=== PATIENT | female | born 1950 | race Caucasian/White ===

== ENCOUNTER 2024-09-12 14:43 | Emergency (ER) | payer OTHER ==
[2024-09-12] MEDS ORDERED: ACETAMINOPHEN 500 MG TAB ONE (15:05)
--- NOTE | 2024-09-12 15:25 | RAD REPORT ---
EXAM: CT brain without contrast HISTORY: Pain;Trauma COMPARISON: None TECHNIQUE: Multiple contiguous axial images were obtained and a CT of the brain without contrast. Sag ittal and coronal reformats were performed. One or more of the following dose reduction techniques were used: Automated exposure control, adjust ment of the mA and/or kV according to patient size, and/or iterative reconstruction. FINDINGS: No evidence of hydrocephalus, intracranial hemorrhage, or extra-axial fluid collection. Mild brain atrophy with mild periventricular and deep white matter chronic microvascular ischemic ch anges present. No evidence of midline shift or areas of brain edema. The calvarium is intact. The visualized paranasal sinuses and mastoid air cells are essentially clear . IMPRESSION: No evidence of acute intracranial abnormality. EXAM: CT of the cervical spine without contrast HISTORY: Neck pain, injury Pain;Trauma TECHNIQUE: Multiple contiguous axial images were obtained in a CT of the cervical spine without contr ast. Sagittal and coronal reformats were performed. FINDINGS: The vertebral bodies demonstrate normal height and alignment. No evidence of acute fracture or subluxation.. Moderate multilevel lower cervical degenerative changes seen with kyphosis. No prevertebral soft tissue swelling is seen. The posterior facets are well aligned. Normal alignment of the skull base with the cervical spine is seen. The lung apices are unremarkable. IMPRESSION: No evidence of acute osseous abnormality of the cervical spine.
--- NOTE | 2024-09-12 16:08 | EDPHYS ---
Physician Documentation [facility] Name: Shelley Lobato Age: 73 yrs Sex: Female : 1950 Arrival Date: 09/12/2024 Time: 14:43 Bed 11 Private MD: ED Physician Scott Vargas HPI: 09/12 16:02 This 73 yrs old Female presents to ER via EMS with complaints of Fall Injury. [facility] 16:02 Details of fall: The patient fell from an upright position, while standing, while jose walking. Onset: The symptoms/episode began/occurred just prior to arrival. Associated injuries: The patient sustained injury to the head, contusion. Severity of symptoms: At their worst the symptoms were mild, in the emergency department the symptoms are unchanged. The patient has not experienced similar symptoms in the past. Historical: - Allergies: 15:00 PENICILLINS; ll1 - PMHx: 15:00 Hypertensive disorder; ll1 - PSHx: 15:00 hernia repair x 2; L knee replacement; ll1 - Immunization history:: Adult Immunizations up to date. - Infectious Disease History:: Denies. - Social history:: Smoking status: Patient denies any tobacco usage or history of. ROS: 16:03 Constitutional: Negative for fever, chills, and weight loss, Eyes: Negative for injury, jose pain, redness, and discharge, ENT: Negative for injury, pain, and discharge, Neck: Negative for injury, pain, and swelling, Cardiovascular: Negative for chest pain, palpitations, and edema, Respiratory: Negative for shortness of breath, cough, wheezing, and pleuritic chest pain, Abdomen/GI: Negative for abdominal pain, nausea, vomiting, diarrhea, and constipation, Back: Negative for injury and pain, : Negative for injury, bleeding, discharge, and swelling, MS/Extremity: Negative for injury and deformity, Skin: Negative for injury, rash, and discoloration, Psych: Negative for depression, anxiety, suicide ideation, homicidal ideation, and hallucinations, Allergy/Immunology: Negative for hives, rash, and allergies, Endocrine: Negative for neck swelling, polydipsia, polyuria, polyphagia, and marked weight changes, Hematologic/Lymphatic: Negative for swollen nodes, abnormal bleeding, and unusual bruising, 16:03 Neuro: Positive for fall, hit back of head, was confused afterwards, Exam: 16:03 Constitutional: This is a well developed, well nourished patient who is awake, alert, jose and in no acute distress. Eyes: Pupils equal round and reactive to light, extra-ocular motions intact. Lids and lashes normal. Conjunctiva and sclera are non-icteric and not injected. Cornea within normal limits. Periorbital areas with no swelling, redness, or edema. ENT: Nares patent. No nasal discharge, no septal abnormalities noted. Tympanic membranes are normal and external auditory canals are clear. Oropharynx with no redness, swelling, or masses, exudates, or evidence of obstruction, uvula midline. Mucous membranes moist. Neck: Trachea midline, no thyromegaly or masses palpated, and no cervical lymphadenopathy. Supple, full range of motion without nuchal rigidity, or vertebral point tenderness. No Meningismus. Chest/axilla: Normal chest wall appearance and motion. Nontender with no deformity. No lesions are appreciated. Cardiovascular: Regular rate and rhythm with a normal S1 and S2. No gallops, murmurs, or rubs. Normal PMI, no JVD. No pulse deficits. Respiratory: Lungs have equal breath sounds bilaterally, clear to auscultation and percussion. No rales, rhonchi or wheezes noted. No increased work of breathing, no retractions or nasal flaring. Abdomen/GI: Soft, non-tender, with normal bowel sounds. No distension or tympany. No guarding or rebound. No evidence of tenderness throughout. Back: No spinal tenderness. No costovertebral tenderness. Full range of motion. Skin: Warm, dry with normal turgor. Normal color with no rashes, no lesions, and no evidence of cellulitis. MS/ Extremity: Pulses equal, no cyanosis. Neurovascular intact. Full, normal range of motion. Neuro: Awake and alert, GCS 15, oriented to person, place, time, and situation. Cranial nerves II-XII grossly intact. Motor strength 5/5 in all extremities. Sensory grossly intact. Cerebellar exam normal. Normal gait. Psych: Awake, alert, with orientation to person, place and time. Behavior, mood, and affect are within normal limits. 16:03 Head/face: Noted is contusion, that is superficial, of the left occipital area and right occipital area, 16:03 Musculoskeletal/extremity: DVT Exam: No signs of deep vein thrombosis. no pain, no swelling, no tenderness, negative Homans' sign noted on exam, no appreciated bluish discoloration, no erythema, no increased warmth, Vital Signs: 14:59 BP 169 / 90; Pulse 77; Resp 16; Temp 97.3; Pulse Ox 99% on R/A; Weight 77.11 kg; Height ll1 5 ft. 4 in. ; Pain 5/10; 16:39 BP 178 / 85; Pulse 79; Resp 18 S; Pulse Ox 100% on R/A; kc6 14:59 Body Mass Index 29.18 (77.11 kg, 162.56 cm) ll1 14:59 Pain Scale: Adult ll1 Toney Coma Score: 16:04 Eye Response: spontaneous(4). Motor Response: obeys commands(6). Verbal Response: jose oriented(5). Total: 15. MDM: 14:55 Medical Screening Exam initiated jose 16:04 Differential diagnosis: Contusion of Hematoma on Intracranial bleed- Concussion without jose LOC. cerebral contusion. Differential diagnosis: abrasion, closed head injury, contusion, fracture, laceration, multiple trauma, sprain, strain. Data reviewed: vital signs, nurses notes, radiologic studies, CT scan. Consideration of Admission/Observation Escalation of care including admission/observation considered. I considered the following discharge prescriptions or medication management in the emergency department Medications were administered in the Emergency Department. See MAR. Independent interpretation of the following test(s) in the Emergency Department CT Scan: My interpretation is ct head and c spine. Test considered but Not performed: Labs: no labs, no ekg, no cp , no n/v, pt tripped , wearing flip flops. 09/12 14:59 Order name: CT Head C Spine; Complete Time: 15:46 jose 09/12 14:59 Order name: Ice pack; Complete Time: 15:07 jose Administered Medications: 15:10 Drug: Acetaminophen PO 1000 mg PO once Route: PO; kc6 15:51 Follow up: Response: No adverse reaction kc6 16:39 Drug: Norvasc PO 5 mg PO once Route: PO; kc6 Disposition Summary: 09/12/24 16:07 Discharge Ordered Notes: Location: Home jose Problem: new jose Symptoms: have improved jose Condition: Stable jose Diagnosis - Fall on same level, unspecified jose - Concussion without loss of consciousness jose - Postconcussional syndrome jose - Essential (primary) hypertension jose Followup: jose - With: Private Physician - When: 2 - 3 days - Reason: Recheck today's complaints, Continuance of care, Re-evaluation by your physician Followup: jose - With: Liam Gómez MD - When: 2 - 3 days - Reason: Recheck today's complaints, Re-evaluation by your physician Discharge Instructions: - Discharge Summary Sheet jose - Contusion jose - Head Injury, Adult jose - Hypertension, Adult jose - Post-Concussion Syndrome jose - Post-Concussion Syndrome, [id number]-ge-[id number] jose - Contusion, Lzwd-fu-Ywnp jose - Hypertension, Adult, [id number]-ng-[id number] jose - How to Take Your Blood Pressure, Ooif-ue-Iydt jose - Head Injury, Adult, Bdjo-ab-Kiqb jose - Managing Your Hypertension jose Forms: - Medication Reconciliation Form jose - Antibiotic Education jose - Prescription Opioid Use jose - Patient Portal Instructions jose - Leadership Thank You Letter jose Prescriptions: - Norvasc 5 mg Oral Tablet - take 1 tablet ORAL route once daily; 20 tablet; Refills: 0, Product Selection jose Permitted Signatures: Dispatcher [employer] Scott Gonzalez MD MD cha Lewis, Lynsay, RN RN ll1 Shadia Warren RN RN kc6
--- NOTE | 2024-09-12 16:08 | ER ---
Nurse's Notes [facility] Name: Shelley Lobato Age: 73 yrs Sex: Female : 1950 Arrival Date: 09/12/2024 Time: 14:43 Bed 11 Private MD: Diagnosis: Fall on same level, unspecified;Concussion without loss of consciousness;Postconcussional syndrome;Essential (primary) hypertension Presentation: 09/12 14:53 Chief complaint: Patient states: Fell and hit head in parking lot just [employer]. States she ll1 doesn't remember falling. States the back of her head is tender. Coronavirus screen: Client denies travel out of the [place] in the last 14 days. At this time, the client does not indicate any symptoms associated with coronavirus-19. Ebola Screen: Patient denies travel to an Ebola-affected area in the 21 days before illness onset. Initial Sepsis Screen: Does the patient meet any 2 criteria? No. Patient's initial sepsis screen is negative. Does the patient have a suspected source of infection? No. Patient's initial sepsis screen is negative. Risk Assessment: Do you want to hurt yourself or someone else? Patient reports no desire to harm self or others. Onset of symptoms was September 12, 2024. 14:53 Method Of Arrival: EMS: [facility] 14:53 Acuity: CARA 3 ll1 14:58 Care prior to arrival: None. Mechanism of Injury: Fall. Trauma event details: Injury ll1 occurred in the [facility]. Triage Assessment: 14:55 General: Appears uncomfortable, Behavior is calm, cooperative, appropriate for age. ll1 Pain: Complains of pain in scalp Quality of pain is described as aching. Neuro: Reports headache a syncopal episode. Historical: - Allergies: 15:00 PENICILLINS; ll1 - PMHx: 15:00 Hypertensive disorder; ll1 - PSHx: 15:00 hernia repair x 2; L knee replacement; ll1 - Immunization history:: Adult Immunizations up to date. - Infectious Disease History:: Denies. - Social history:: Smoking status: Patient denies any tobacco usage or history of. Screenin:06 [facility] ED Fall Risk Assessment (Adult) History of falling in the last 3 months, kc6 including since admission Yes- physiologic fall (2 pts) Confusion or Disorientation No (0 pts) Intoxicated or Sedated No (0 pts) Impaired Gait No (0 pts) Mobility Assist Device Used No (0 pt) Altered Elimination No (0 pt) Score/Fall Risk Level 0 - 2 = Low Risk Oriented to surroundings, Maintained a safe environment. Abuse screen: Denies threats or abuse. Denies injuries from another. Nutritional screening: No deficits noted. Tuberculosis screening: No symptoms or risk factors identified. Assessment: 15:05 General: Appears in no apparent distress. comfortable, well groomed, well developed, kc6 Behavior is calm, cooperative, appropriate for age. Pain: Complains of pain in scalp. Neuro: Level of Consciousness is awake, alert, obeys commands, Oriented to person, place, time, situation, Appropriate for age Reports dizziness, a syncopal episode. Cardiovascular: Capillary refill < 3 seconds. Respiratory: Airway is patent Trachea midline Respiratory effort is even, unlabored, Respiratory pattern is regular, symmetrical. GI: No signs and/or symptoms were reported involving the gastrointestinal system. : No signs and/or symptoms were reported regarding the genitourinary system. EENT: No signs and/or symptoms were reported regarding the EENT system. Derm: No signs and/or symptoms reported regarding the dermatologic system. Skin is intact, is healthy with good turgor, Skin is pink, warm \T\ dry. Musculoskeletal: No signs and/or symptoms reported regarding the musculoskeletal system. Circulation, motion, and sensation intact. Capillary refill < 3 seconds, Range of motion: intact in all extremities. 16:05 Reassessment: Patient appears in no apparent distress at this time. No changes from kc6 previously documented assessment. Patient and/or family updated on plan of care and expected duration. Pain level reassessed. Patient is alert, oriented x 3, equal unlabored respirations, skin warm/dry/pink. Vital Signs: 14:59 BP 169 / 90; Pulse 77; Resp 16; Temp 97.3; Pulse Ox 99% on R/A; Weight 77.11 kg; Height ll1 5 ft. 4 in. ; Pain 5/10; 16:39 BP 178 / 85; Pulse 79; Resp 18 S; Pulse Ox 100% on R/A; kc6 14:59 Body Mass Index 29.18 (77.11 kg, 162.56 cm) ll1 14:59 Pain Scale: Adult ll1 Hull Coma Score: 16:04 Eye Response: spontaneous(4). Motor Response: obeys commands(6). Verbal Response: jose oriented(5). Total: 15. ED Course: 14:52 Patient arrived in ED. ll1 14:53 Triage completed. ll1 14:53 Arm band placed on Patient placed in an exam room, on a stretcher. ll1 14:55 Scott Vargas MD is Attending Physician. jose 14:58 Demond Azul, AMY is Primary Nurse. ll1 15:06 Patient has correct armband on for positive identification. Bed in low position. Call kc6 light in reach. Side rails up X2. Adult w/ patient. Report received from Yakelin Azul RN. Pulse ox on. NIBP on. Door closed. Noise minimized. Lights dimmed. Pillow given. 15:06 Patient maintains SpO2 saturation greater than 95% on room air. kc6 15:10 Ice pack to injury. kc6 15:19 CT Head C Spine In Process Unspecified. EDAL 16:06 Liam Gómez MD is Referral Physician. [facility] 16:40 No provider procedures requiring assistance completed. Patient did not have IV access kc during this emergency room visit. Administered Medications: 15:10 Drug: Acetaminophen PO 1000 mg PO once Route: PO; kc6 15:51 Follow up: Response: No adverse reaction kc6 16:39 Drug: Norvasc PO 5 mg PO once Route: PO; kc6 Medication: 16:41 VIS not applicable for this client. kc6 Outcome: 16:07 Discharge ordered by . [facility] 16:41 Discharged to home ambulatory, with family, kc 16:41 Condition: improved 16:41 Discharge instructions given to patient, family, Instructed on discharge instructions, follow up and referral plans. medication usage, Demonstrated understanding of instructions, follow-up care, medications, Prescriptions given X 1, 16:41 Patient left the ED. kc6 Signatures: Dispatcher [employer] EDAL Scott Vargas MD MD cha Lewis, Lynsay, RN RN ll1 Shadia Warren RN RN kc6 Corrections: (The following items were deleted from the chart) 14:59 14:53 Chief complaint: Patient states: Fell and hit head in parking lot just [employer]. ll1 States she doesn't remember falling. ll1
[2024-09-12] MEDS ORDERED: AMLODIPINE 5 MG TAB ONE (16:36)
[2024-09-12 18:32] VITALS: TEMP 97.3
[2024-09-12 18:33] VITALS: BP 178/85; O2SAT 100
== END 2024-09-12 16:41 | disposition home or self-care (01) ==
LOC: ER 14:43
DX: S06.0X0A Concussion without loss of consciousness, initial encounter (principal); I10 Essential (primary) hypertension; W18.30XA Fall on same level, unspecified, initial encounter
CPT/HCPCS: 70450; 72125; 99284